=== PATIENT | female | born 1940 | race Caucasian/White ===

== ENCOUNTER → 2016-12-01 | Outpatient (CLI) | payer BC ==
[2016-12-01 09:46] LABS: ALT/SGPT 30 U/L (12-78); AST/SGOT 23 U/L (15-37); BLOOD UREA NITROGEN 15 mg/dl (7-18); BUN/CREATININE RATIO 15.4 (10-20); CARBON DIOXIDE 28 mmol/L (21-32); CHLORIDE 98 mmol/L (98-107); CREATININE 0.95 mg/dl (0.60-1.20); GLUCOSE 105 mg/dl (70-99); POTASSIUM 4.1 mmol/L (3.5-5.1); SODIUM 134 mmol/L (136-145)
[2016-12-01 09:56] LABS: CHOLESTEROL 151 mg/dl (0-200); CHOLESTEROL/HDL RATIO 2.3; HDL CHOLESTEROL 66 mg/dl; LDL CHOLESTEROL CALCULATED 62 mg/dl; THYROID STIMULATING HORMONE 0.523 uIu/ml (0.300-4.500); TRIGLYCERIDES 117 mg/dl (0-150); VERY LOW DENSITY LIPOPROT CALC 23 mg/dl
[2016-12-01 09:58] LABS: CALCIUM 9.4 mg/dl (8.5-10.1)
[2016-12-01 10:09] LABS: ESTIMATED AVERAGE GLUCOSE 123 mg/dl; HA1C FLAG Normal (Normal)
--- NOTE | 2016-12-05 11:50 | CODING QUERY MEDICAL NECESSITY ---
SUPPORTING DIAGNOSIS NEEDED A supporting diagnosis is required for the test/procedure performed on this patient in order for us to be reimbursed by the patient's insurance. Please provide a supporting diagnosis for the following test/procedure listed below next to the test name along with your signature. *If there is no additional diagnosis for this patient that would support the following test/procedure please document that below next to the test/procedure. Test(s)/Procedure(s) that require a supporting diagnosis: * HEMOGLOBIN A1C DIAGNOSIS: Provider Signature: Date: Thank you Fifi Myles [employer] Once completed, please kindly fax back to [phone] For questions please call [phone]
== END | disposition home or self-care (01) ==
LOC: C.LAB1850 07:01
PROVIDERS: ATTEND Internal Medicine
DX: R73.03 Prediabetes (principal); E78.5 Hyperlipidemia, unspecified; E01.0 Iodine-deficiency related diffuse (endemic) goiter

== ENCOUNTER → 2017-07-16 | Outpatient (CLI) | payer BC ==
--- NOTE | 2017-07-16 10:45 | DIAGNOSTIC IMAGING REPORT ---
L ANKLE MIN 3 VIEWS ROUTINE CLINICAL HISTORY: S93.409A Ankle [id number] LEFT ANKLE PAIN COMPARISON: None. DISCUSSION: There is a transverse lucency through the base the fifth metatarsal. The findings are consistent with age-indeterminate fracture. There is Achilles insertional spur. There is a corticated ossicle adjacent to the lateral malleolar tip. The ankle mortise appears intact. No fractures of the distal tibia or fibula are visualized. IMPRESSION: Age-indeterminate fracture involving the base of the fifth metatarsal. Please correlate with the patient's site of pain. Electronically signed by: Oleksandr Moses M.D. 07/16/2017 10:44 AM Dictated Date/Time: 07/16/2017 10:42 AM
--- NOTE | 2017-07-16 10:49 | DIAGNOSTIC IMAGING REPORT ---
LEFT FOOT 3 VIEWS CLINICAL HISTORY: Left foot injury. FINDINGS: 3 views of the left foot are obtained. No prior studies are available for comparison at the time of dictation. The skeletal structures are osteopenic. There is an age indeterminant fracture at the base of the fifth metatarsal. No additional finding is concerning for acute fracture. Mild arthritic change is noted in the midfoot. Degenerative spurring is seen along the dorsal aspect of the tarsal bones. Dorsal and plantar calcaneal enthesophytes are identified. There is mild lateral soft tissue edema. IMPRESSION: 1. Age indeterminant but suspected acute fracture at the base of the fifth metatarsal with overlying soft tissue edema. 2. No additional fracture is seen. 3. Osteopenia, heel spurs, and arthritic change as above. Electronically signed by: Daniel Angel M.D. 07/16/2017 10:48 AM Dictated Date/Time: 07/16/2017 10:46 AM
== END | disposition home or self-care (01) ==
LOC: C.RAD1850 10:16
PROVIDERS: ATTEND Physician Assistant
DX: S93.402A Sprain of unspecified ligament of left ankle, initial encounter (principal); X58.XXXA Exposure to other specified factors, initial encounter

== ENCOUNTER → 2017-07-28 | Outpatient (CLI) | payer BC ==
--- NOTE | 2017-07-28 09:24 | DIAGNOSTIC IMAGING REPORT ---
L FOOT MIN 3 VIEWS ROUTINE CLINICAL HISTORY: S93.409A Ankle [id number] COMPARISON: None. DISCUSSION: Nondisplaced fracture base fifth metatarsal. No major change in the prior study. No significant healing compared to the prior exam. Small heel spur. Mild generalized osteopenia. There is no evidence for soft tissue swelling. IMPRESSION: Osteopenia. Fracture base fifth metatarsal showing no significant interval healing from the prior exam. The above report was generated using voice recognition software. It may contain grammatical, syntax or spelling errors. Electronically signed by: Doroteo Bearden M.D. 07/28/2017 9:23 AM Dictated Date/Time: 07/28/2017 9:19 AM
== END | disposition home or self-care (01) ==
LOC: C.RAD1850 09:02
PROVIDERS: ATTEND Physician Assistant
DX: S92.355D Nondisplaced fracture of fifth metatarsal bone, left foot, subsequent encounter for fracture with routine healing (principal); M85.872 Other specified disorders of bone density and structure, left ankle and foot; X58.XXXD Exposure to other specified factors, subsequent encounter

== ENCOUNTER → 2017-07-28 | Outpatient (CLI) | payer BC ==
[2017-07-28 09:49] LABS: ALT/SGPT 25 U/L (12-78); AST/SGOT 20 U/L (15-37); BLOOD UREA NITROGEN 25 mg/dl (7-18); CALCIUM 9.6 mg/dl (8.5-10.1); CARBON DIOXIDE 29 mmol/L (21-32); CREATININE 1.03 mg/dl (0.60-1.20); GLUCOSE 103 mg/dl (70-99); POTASSIUM 3.7 mmol/L (3.5-5.1); SODIUM 137 mmol/L (136-145)
[2017-07-28 09:59] LABS: CHOLESTEROL 160 mg/dl (0-200); LDL CHOLESTEROL CALCULATED 70 mg/dl
[2017-07-28 10:33] LABS: HEMOGLOBIN A1C 5.7 % (4.5-5.6)
== END | disposition home or self-care (01) ==
LOC: C.LAB1850 07:19
PROVIDERS: ATTEND Internal Medicine
DX: R73.03 Prediabetes (principal); E78.5 Hyperlipidemia, unspecified; E04.9 Nontoxic goiter, unspecified

== ENCOUNTER → 2017-08-03 | Outpatient (CLI) | payer BC | END | disposition home or self-care (01) | LOC: C.LAB1850 14:54 | PROVIDERS: ATTEND Physical Medicine & Rehabilitation Sports Medicine | DX: S92.355D Nondisplaced fracture of fifth metatarsal bone, left foot, subsequent encounter for fracture with routine healing (principal); X58.XXXA Exposure to other specified factors, initial encounter ==

== ENCOUNTER → 2017-08-24 | Outpatient (CLI) | payer BC | END | disposition home or self-care (01) | LOC: C.MAMM 08:50 | PROVIDERS: ATTEND Physical Medicine & Rehabilitation Sports Medicine | DX: S92.355D Nondisplaced fracture of fifth metatarsal bone, left foot, subsequent encounter for fracture with routine healing (principal); X58.XXXD Exposure to other specified factors, subsequent encounter; M85.851 Other specified disorders of bone density and structure, right thigh; M85.852 Other specified disorders of bone density and structure, left thigh ==

== ENCOUNTER → 2017-09-14 | Outpatient (CLI) | payer BC ==
--- NOTE | 2017-09-14 11:29 | DIAGNOSTIC IMAGING REPORT ---
L FOOT MIN 3 VIEWS CLINICAL HISTORY: 77 years-old Female presenting with LEFT FOOT PAIN. TECHNIQUE: Frontal, oblique, and lateral views of the left foot were obtained. COMPARISON: 07/28/2017. FINDINGS: Osteopenia. Allowing for this, nondisplaced obliquely oriented fracture of the neck of the fifth metatarsal. This is not extend into the fifth metatarsophalangeal joint. No additional fracture. No malalignment. Prominent bone spur at the inferior calcaneus at the origin of the plantar fascia. IMPRESSION: 1. Obliquely oriented extra articular nondisplaced fracture of the neck of the fifth metatarsal. 2. Osteopenia. Electronically signed by: Augustus Shane M.D. 09/14/2017 11:28 AM Dictated Date/Time: 09/14/2017 11:26 AM
== END | disposition home or self-care (01) ==
LOC: C.RDSM 11:12
PROVIDERS: ATTEND Physician Assistant
DX: S92.355D Nondisplaced fracture of fifth metatarsal bone, left foot, subsequent encounter for fracture with routine healing (principal); X58.XXXD Exposure to other specified factors, subsequent encounter; M85.872 Other specified disorders of bone density and structure, left ankle and foot

== ENCOUNTER → 2017-10-13 | Outpatient (CLI) | payer BC ==
--- NOTE | 2017-10-13 09:48 | DIAGNOSTIC IMAGING REPORT ---
L FOOT MIN 3 VIEWS CLINICAL HISTORY: Follow-up fracture. COMPARISON: Left foot radiographs September 14, 2017. FINDINGS: Note is made of partial interval healing of the nondisplaced oblique fracture of the distal shaft and neck of the left fifth metatarsal. Callus formation is noted. Fracture line remains evident. Tarsometatarsal joints are intact. Irregularity and sclerosis of the base of the left fifth metatarsal is noted. Moderate plantar calcaneal spurring is noted. IMPRESSION: 1. Partial interval healing of the nondisplaced oblique fracture of the distal shaft and neck of the left fifth metatarsal. 2. Sclerosis and lucency within the base of the left fifth metatarsal which may reflect a chronic to subacute fracture. Electronically signed by: Yasir Lu M.D. 10/13/2017 9:47 AM Dictated Date/Time: 10/13/2017 9:45 AM
== END | disposition home or self-care (01) ==
LOC: C.RDSM 09:00
PROVIDERS: ATTEND Physician Assistant
DX: S92.902A Unspecified fracture of left foot, initial encounter for closed fracture (principal); X58.XXXA Exposure to other specified factors, initial encounter

== ENCOUNTER → 2017-10-28 | Outpatient (CLI) | payer BC ==
--- NOTE | 2017-10-28 17:28 | DIAGNOSTIC IMAGING REPORT ---
RIGHT ANKLE 3 VIEWS HISTORY: Right ankle pain and swelling. COMPARISON: None. FINDINGS: The bones are osteopenic. No acute fracture or dislocation within the right ankle. Mild soft tissue swelling. There are plantar and posterior calcaneal spurs. No radiopaque foreign bodies. IMPRESSION: Mild soft tissue swelling within the right ankle. No fracture or dislocation. Electronically signed by: Zander Doherty M.D. 10/28/2017 5:26 PM Dictated Date/Time: 10/28/2017 5:25 PM
== END | disposition home or self-care (01) ==
LOC: C.RAD1850 16:40
PROVIDERS: ATTEND Nurse Practitioner Adult Health
DX: M25.571 Pain in right ankle and joints of right foot (principal); M25.473 Effusion, unspecified ankle; R26.9 Unspecified abnormalities of gait and mobility; W19.XXXA Unspecified fall, initial encounter

== ENCOUNTER → 2018-01-06 | Outpatient (CLI) | payer BC ==
--- NOTE | 2018-01-06 09:53 | DIAGNOSTIC IMAGING REPORT ---
L-SPINE MIN 4 VIEWS ROUTINE CLINICAL HISTORY: Lumbosacral radiculopathy at L5. COMPARISON: Lumbar spine radiographs July 26, 2013. FINDINGS: There are 5 lumbar type vertebra. Slight anterolisthesis of L3 on L4 is unchanged. There is marked disc space narrowing at L4-L5 and L5-S1. Moderate disc space narrowing is noted remainder of the levels with moderate to severe facet arthrosis. No fracture or suspicious lesion is noted. Vacuum disc phenomenon at noted at multiple levels. IMPRESSION: 1. Moderate to severe multilevel degenerative disc disease and facet arthrosis of the lumbar spine, most pronounced at L4-L5 and L5-S1. 2. No lumbar spine fracture. Electronically signed by: Yasir Lu M.D. 01/06/2018 9:51 AM Dictated Date/Time: 01/06/2018 9:49 AM
== END | disposition home or self-care (01) ==
LOC: C.RAD1850 09:32
PROVIDERS: ATTEND Physician Assistant
DX: M51.16 Intervertebral disc disorders with radiculopathy, lumbar region (principal)

== ENCOUNTER → 2018-02-02 | Outpatient (CLI) | payer BC ==
--- NOTE | 2018-02-02 12:44 | DIAGNOSTIC IMAGING REPORT ---
LUMBAR SPINE W/O CONTRAST CLINICAL HISTORY: 77 years-old Female with POLY NEUROPATHY, LUMBAR RADICULOPATHY AT L5. Chronic low back pain with radiation to the bilateral hips and feet with associated numbness. COMPARISON: Lumbar spine radiographs 01/06/2018. TECHNIQUE: Multiplanar, multi sequence MRI of the lumbar spine was performed without intravenous contrast. FINDINGS: No acute fracture, subluxation or focal bone marrow edema of the lumbar spine. The conus medullaris terminates at L1. Signal within the imaged thoracic spinal cord appears normal. Study is motion degraded. No aortic aneurysm or adenopathy. No gross abnormality identified within the paraspinal structures, visualized chest, abdomen or pelvis. Severe multilevel intervertebral disc space narrowing with spondylitic spurring and facet arthropathy as detailed below. 5 mm anterolisthesis L3 on L4 is unchanged and appears chronic. T11-T12: On the sagittal images alone, there is a circumferential annular disc bulge with spondylitic spurring which causes flattening of the ventral thecal sac and mild flattening of the ventral thoracic spinal cord resulting in mild central canal without foraminal narrowing. T12-L1: On the sagittal images alone, there is mild intervertebral disc space narrowing with spondylitic spurring and circumferential annular disc bulge. No central canal narrowing. Mild right foraminal stenosis. The left foramen appears patent. L1-L2: At least mild intervertebral disc space narrowing with spondylitic spurring, circumferential annular disc bulge, advanced facet arthrosis with trace facet effusions and ligamentum flavum thickening. Findings cause mild central canal, moderate left and [id number] right foraminal narrowing. L2-L3: Mild intervertebral disc space narrowing with spondylitic spurring and circumferential annular disc bulge with severe facet arthrosis and ligamentum flavum thickening. AP dimension of the thecal sac measures 5 mm. There is severe central canal, moderate left and moderate right foraminal narrowing. L3-L4: Grade 1 anterolisthesis. Spondylitic spurring with circumferential annular disc bulge and right paracentral/right lateral recess disc extrusion measuring 6 mm in AP dimension extending 6 mm in craniocaudal dimension on image 8 series 3. Additionally, there is severe facet arthrosis with ligamentum flavum thickening at this level. Findings cause severe central canal stenosis with AP dimension of the thecal sac measuring approximately 1 mm. Additionally, there is moderate right and [id number] left foraminal stenosis. L4-L5: Spondylitic spurring with circumferential annular disc bulge and central disc osteophyte complex formation with severe facet arthrosis and ligamentum flavum thickening flattens the ventral thecal sac to 4.5 cm in AP dimension resulting in severe central canal, [id number] left and severe right foraminal narrowing. L5-S1: Posterior spondylitic spurring with circumferential annular disc bulge and central disc protrusion. Moderate facet arthrosis. Findings cause mild central canal and mild bilateral foraminal narrowing. IMPRESSION: 1. Motion-degraded exam with multilevel advanced intervertebral disc space narrowing with annular disc bulging, spondylitic spurring and severe facet arthrosis. 2. No acute fracture, subluxation or focal bone marrow edema. 3. Grade 1 anterolisthesis L3 on L4, likely on a degenerative basis. 4. Severe central canal stenosis is seen at L2-L3, L3-L4 and L4-L5. 5. Multilevel foraminal narrowing as detailed above. The above report was generated using voice recognition software. It may contain grammatical, syntax or spelling errors. Dictated: 02/02/2018 11:53 AM Transcribed: 02/02/2018 12:44 PM [facility] Electronically signed by: Javier Kemp M.D. 02/02/2018 12:47 PM Dictated Date/Time: 02/02/2018 11:53 AM
== END | disposition home or self-care (01) ==
LOC: C.MRI 10:18
PROVIDERS: ATTEND Internal Medicine
DX: G60.9 Hereditary and idiopathic neuropathy, unspecified (principal); M54.17 Radiculopathy, lumbosacral region